=== PATIENT | female | born 1990 | race Caucasian/White ===

== ENCOUNTER 2020-06-20 10:21 | Outpatient (CLI) | payer OTHER ==
--- NOTE | 2020-06-21 12:10 | Ultrasound Report ---
LIMITED ULTRASOUND OF RIGHT BREAST: 06/20/2020 CLINICAL: Rt breast skin lesion. No prior exams were available for comparison. Color flow and real-time ultrasound of the right breast 8-10 o'clock region were performed. Araya sca le images of the real-time examination were reviewed. No significant abnormalities were seen sonographically in the right breast in the region of skin mckenzie ges. No mass or fluid collection. IMPRESSION: NEGATIVE There is no sonographic evidence of malignancy. Return to annual mammogram screening schedule is recommended, usually to commence at age 40. Exam findings were conveyed to the patient. Patient is advised to monitor for significant change. Cli nical follow-up is recommended. This exam was interpreted at Station ID: [id number]. Electronically Signed By: Jasper Johnson M.D. slc/:06/20/2020 11:01:25 Ultrasound BI-RADS: 1 Negative BI-RADS CATEGORY: (1) - 1 RECOMMENDATION: (ANNUAL) - Recommend routine annual screening mammography. [id number] return to screening LATERALITY: (B)
== END 2020-06-20 10:22 | disposition home or self-care (01) ==
LOC: DI 10:21
PROVIDERS: ATTEND Physician Assistant Medical
DX: N64.59 Other signs and symptoms in breast (principal)

== ENCOUNTER 2021-04-13 09:33 | Outpatient (CLI) | payer OTHER ==
--- NOTE | 2021-04-13 16:47 | MRI Report ---
PROCEDURE: Lumbar Spine W/O INDICATIONS: PARESTHESIA OF SKIN TECHNIQUE: Noncontrast sagittal T1 spin echo and T2 fast echo, sagittal STIR, axial T1 and T2 fast spin echo thr ough the lumbar spine. In cases with scoliosis, additional coronal T2 fast spin echo may be performe d. COMPARISON: None. FINDINGS: Image quality: Excellent. Alignment and Curvature: There is normal bony alignment. Bone Marrow: Marrow is of normal overall signal. No acute vertebral body compression fractures. Spinal Cord: Conus medullaris terminates at the L1 level. Visualized cord demonstrates normal signa l and size. Paraspinous Soft Tissues: No paravertebral masses. Liver is enlarged. Discs: Moderate to severe desiccation is present L4-5, L5-S1. L1-L2: No disc bulge, spinal stenosis or foraminal narrowing. L2-L3: No disc bulge, spinal stenosis or foraminal narrowing. L3-L4: Minimal disc bulge without spinal stenosis. Minimal left foraminal narrowing. Mild epidural lipomatosis. Mild facet and ligamentum flavum hypertrophy. L4-L5: Left hemilaminectomy changes. No disc bulge or spinal stenosis. No foraminal narrowing. L5-S1: No disc bulge or spinal stenosis. [id number] right and mild left foraminal narrowing w ith uncovertebral hypertrophy. 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 Reviewed by: Trish James MD on 04/13/2021 4:45 PM PST Approved by: Trish James MD on 04/13/2021 4:45 PM PST Station ID: [id number]
== END 2021-04-13 09:34 | disposition home or self-care (01) ==
LOC: DI 09:33
PROVIDERS: ATTEND Physician Assistant
DX: R20.2 Paresthesia of skin (principal); M47.816 Spondylosis without myelopathy or radiculopathy, lumbar region; M47.817 Spondylosis without myelopathy or radiculopathy, lumbosacral region; M51.36 Other intervertebral disc degeneration, lumbar region; M48.061 Spinal stenosis, lumbar region without neurogenic claudication; M51.37 Other intervertebral disc degeneration, lumbosacral region; M48.07 Spinal stenosis, lumbosacral region

== ENCOUNTER 2021-08-18 17:10 | Outpatient (CLI) | payer OTHER ==
[2021-08-18 21:06] LABS: CALCIUM 9.6 mg/dL (8.5-10.3); CREATININE 0.8 mg/dL (0.4-1.0); POTASSIUM 3.7 mmol/L (3.5-5.0)
[2021-08-18 21:11] LABS: CREATININE,URINE 56.8 mg/dL; PROTEIN/CREATININE RATIO,URINE 0.2 (<=0.2)
== END 2021-08-18 17:11 | disposition home or self-care (01) ==
LOC: LAB.N 17:10
PROVIDERS: ATTEND Internal Medicine Nephrology
DX: N05.9 Unspecified nephritic syndrome with unspecified morphologic changes (principal); R80.9 Proteinuria, unspecified
CPT/HCPCS: 36415; 80048; 82570; 84156

== ENCOUNTER 2022-02-05 15:44 | Emergency (ER) | payer OTHER ==
--- OUTSIDE RECORDS SUMMARY | 2022-02-05 16:00 | EXTERNAL MEDICAL SUMMARY RPT | Continuity of Care Document ---
:1990 Author Organization [place] Address [address] [place] [address] Phone Care Team Providers Name Role Phone Maria L Douglas Unavailable Unavailable Allergies and Intolerances date description facility type (no date) amoxicillin [facility] (unknown) (no date) banana [facility] (unknown) (no date) corn [facility] (unknown) (no date) egg [facility] (unknown) (no date) nut - unspecified [facility] (unknown) (no date) wheat [facility] (unknown) Encounters No information. Functional Status No information. Immunizations No information. Medications date description facility 2021-12-30 00:00 Oseltamivir [facility] Problems date description facility 2021-12-30 00:00 Influenza due to influenza virus, type A, human [facility] Procedures No information. Results/Labs test date author facility value unit interpret ation Result panel 1 (unknown) (no date[facility] Result panel 2 (unknown) (no date) (unknown[facility]) Result panel 3 (unknown) (no date) (unknown[facility]) Result panel 4 (unknown) (no date) (unknown[facility]) Result panel 5 (unknown) (no date) (unknown[facility]) Result panel 6 (unknown) (no date) (unknown[facility]) Result panel 7 (unknown) (no date) (unknown[facility]) Result panel 8 (unknown) (no date) (unknown[facility]) Result panel 9 (unknown) (no date) (unknown[facility]) Result panel 10 (unknown) (no date) (unknown[facility]) Result panel 11 (unknown) (no date) (unknown[facility]) Result panel 12 (unknown) (no date) (unknown[facility]) Result panel 13 (unknown) (no date) (unknown[facility]) Result panel 14 (unknown) (no date) (unknown[facility]) Result panel 15 (unknown) (no date) (unknown[facility]) Result panel 16 (unknown) (no date) (unknown[facility]) Result panel 17 (unknown) (no date) (unknown[facility]) Result panel 18 (unknown) (no date) (unknown[facility]) Result panel 19 (unknown) (no date) (unknown[facility]) Result panel 20 (unknown) (no date) (unknown[facility]) Result panel 21 (unknown) (no date) (unknown[facility]) Result panel 22 (unknown) (no date) (unknown[facility]) Result panel 23 (unknown) (no date) (unknown[facility]) Result panel 24 (unknown) (no date) (unknown[facility]) Result panel 25 (unknown) (no date) (unknown[facility]) Result panel 26 (unknown) (no date) (unknown[facility]) Result panel 27 (unknown) (no date) (unknown[facility]) Result panel 28 (unknown) (no date) (unknown[facility]) Result panel 29 (unknown) (no date) (unknown[facility]) Result panel 30 (unknown) (no date) (unknown[facility]) Result panel 31 (unknown) (no date) (unknown[facility]) Result panel 32 (unknown) (no date) (unknown[facility]) Result panel 33 (unknown) (no date) (unknown) [facility]) Result panel 34 (unknown) (no date) (unknown) [facility]) Result panel 35 (unknown) (no date) (unknown[facility]) Result panel 36 (unknown) (no date) (unknown[facility]) Result panel 37 (unknown) (no date) (unknown) [facility]) Result panel 38 (unknown) (no date) (unknown) [facility]) Result panel 39 (unknown) (no date) (unknown[facility]) Result panel 40 (unknown) (no date) (unknown[facility]) Result panel 41 (unknown) (no date) (unknown[facility]) Result panel 42 (unknown) (no date) (unknown[facility]) Result panel 43 (unknown) (no date) (unknown[facility]) Result panel 44 (unknown) (no date) (unknown[facility]) Result panel 45 (unknown) (no date) (unknown[facility]) Result panel 46 (unknown) (no date) (unknown[facility]) Result panel 47 (unknown) (no date) (unknown[facility]) Result panel 48 (unknown) (no date) (unknown[facility]) Result panel 49 (unknown) (no date) (unknown) [facility]) Result panel 50 (unknown) (no date) (unknown) [facility]) Result panel 51 (unknown) (no date) (unknown) [facility] Result panel 52 (unknown) (no date) (unknown) (unknown) Flu A (units (unkn own) POSITIVE unknown) (unknown) (no date) (unknown) (unknown) Flu B (units (unkn own) NEGATIVE unknown) (unknown) (no date) (unknown) (unknown) Negative (units (unkn own) unknown) (unknown) (no date) (unknown) (unknown) Negative (units (unkn own) unknown) Result panel 53 (unknown) (no (unknown) (unknown) (no value) (units (unk nown) date) unknown) (unknown) (no (unknown) (unknown) #6.7 grams (units (unk nown) date) unknown) (unknown) (no (unknown) (unknown) #75 mL (units (unkno wn) date) unknown) (unknown) (no (unknown) (unknown) (0.083 %) (units (unkn own) date) solution for unknown) nebulization shortness of breath or wheezing (unknown) (no (unknown) (unknown) (DME) nebulizer (units (unknown) date) and compressor unknown) Device (unknown) (no (unknown) (unknown) [id number] (units (unkno wn) date) unknown) (unknown) (no (unknown) (unknown) 12/30/21 18:36 (units (unknown) date) unknown) (unknown) (no (unknown) (unknown) 12/30/21 (units (unkno wn) date) Range/Units unknown) (unknown) (no (unknown) (unknown) 12/30/21 (units (unkno wn) date) unknown) (unknown) (no (unknown) (unknown) 12 point review (units (unknown) date) of systems is unknown) negative except for those stated above and HPI (unknown) (no (unknown) (unknown) 18:28 12/30/21 (units (unknown) date) unknown) (unknown) (no (unknown) (unknown) 18:36 (units (unkno wn) date) unknown) (unknown) (no (unknown) (unknown) 19:34 (units (unkno wn) date) unknown) (unknown) (no (unknown) (unknown) 1RF (units (unkno wn) date) unknown) (unknown) (no (unknown) (unknown) 2 puff (units (unkno wn) date) inhalation Q6H unknown) PRN (Reason: shortness of breath or wheezing) Qty: 6.7 (unknown) (no (unknown) (unknown) 2.5 mg (units (unkno wn) date) inhalation Q4-6H unknown) PRN (Reason: shortness of breath or wheezing) Qty: 75 (unknown) (no (unknown) (unknown) 3RF (units (unkno wn) date) unknown) (unknown) (no (unknown) (unknown) 40 mg PO DAILY (units (unknown) date) Qty: 10 0RF unknown) (unknown) (no (unknown) (unknown) Age/Sex: 31 / F (units (unknown) date) unknown) (unknown) (no (unknown) (unknown) Allergies (units (unkn own) date) unknown) (unknown) (no (unknown) (unknown) Allergy/AdvReac (units (unknown) date) Type Severity unknown) Reaction Status Date / Time (unknown) (no (unknown) (unknown) As directed (units (un known) date) unknown) (unknown) (no (unknown) (unknown) Asthma (units (unkno wn) date) unknown) (unknown) (no (unknown) (unknown) Blood Pressure (units (unknown) date) 143/76 H unknown) 12/30/21 18:28 (unknown) (no (unknown) (unknown) Blood Pressure (units (unknown) date) 143/76 H 139/70 unknown) (unknown) (no (unknown) (unknown) CARDIOVASCULAR: (units (unknown) date) Denies chest unknown) pain, palpitations, orthopnea, edema (unknown) (no (unknown) (unknown) Chief (units (unkno wn) date) Complaint: Upper unknown) Respiratory Symptoms (unknown) (no (unknown) (unknown) Course (units (unkno wn) date) unknown) (unknown) (no (unknown) (unknown) Covid-19 + FLU (units (unknown) date) A/B + RSV - PCR unknown) Stat (unknown) (no (unknown) (unknown) : 1990 (units (unknown) date) Acct:[id number] unknown) (unknown) (no (unknown) (unknown) Date of (units (unkno wn) date) Service: unknown) 12/30/21 (unknown) (no (unknown) (unknown) Departure (units (unkn own) date) unknown) (unknown) (no (unknown) (unknown) Discharge Plan (units (unknown) date) unknown) (unknown) (no (unknown) (unknown) ED Orders (units (unkn own) date) unknown) (unknown) (no (unknown) (unknown) ER Physician: (units ( unknown) date) Ivana Soto unknown) D.O. (unknown) (no (unknown) (unknown) Emergency (units (unkn own) date) Report unknown) (unknown) (no (unknown) (unknown) Exam (units (unkno wn) date) unknown) (unknown) (no (unknown) (unknown) GASTROINTESTINA (units (unknown) date) L: Denies unknown) nausea, vomiting, abdominal pain, diarrhea, (unknown) (no (unknown) (unknown) GENERAL: (units (unkno wn) date) unknown) (unknown) (no (unknown) (unknown) : Denies (units (unkn own) date) dysuria, unknown) frequency, incontinence, hematuria, urinary retention, flank (unknown) (no (unknown) (unknown) General (units (unkno wn) date) unknown) (unknown) (no (unknown) (unknown) HEENT: Denies (units ( unknown) date) sinus pain, ear unknown) pain, sore throat, difficulty swallowing, neck (unknown) (no (unknown) (unknown) HPI - URI/Sore (units (unknown) date) Throat unknown) (unknown) (no (unknown) (unknown) HPI Narrative: (units (unknown) date) unknown) (unknown) (no (unknown) (unknown) History of (units (unk nown) date) Present Illness unknown) (unknown) (no (unknown) (unknown) Influenza A (units (un known) date) (RT-PCR) Flu a unknown) positive H (NEGATIVE) (unknown) (no (unknown) (unknown) Influenza B (units (un known) date) (RT-PCR) Flu b unknown) negative (NEGATIVE) (unknown) (no (unknown) (unknown) Initial Vital (units ( unknown) date) Signs unknown) (unknown) (no (unknown) (unknown) Initial Vital (units ( unknown) date) Signs: unknown) (unknown) (no (unknown) (unknown) [facility] (units (unknown) date) [address] [place] [address] Street unknown) [place] [address] (unknown) (no (unknown) (unknown) Lab Data (units (unkno wn) date) unknown) (unknown) (no (unknown) (unknown) Lab Results (units (un known) date) unknown) (unknown) (no (unknown) (unknown) Labs: (units (unkno wn) date) unknown) (unknown) (no (unknown) (unknown) MDM - URI/Sore (units (unknown) date) Throat unknown) (unknown) (no (unknown) (unknown) MUSCULOSKELETAL (units (unknown) date) : Denies unknown) weakness, joint pain, or bony pain (unknown) (no (unknown) (unknown) Medical History (units (unknown) date) (Updated unknown) 08/06/21 @ 00:01 by ) (unknown) (no (unknown) (unknown) Medication (units (unk nown) date) Instructions unknown) Recorded (unknown) (no (unknown) (unknown) Mode of (units (unkno wn) date) arrival: Family unknown) Vehicle (unknown) (no (unknown) (unknown) NEUROLOGIC: (units (un known) date) Denies weakness, unknown) dizziness, headache, numbness, change in speech, (unknown) (no (unknown) (unknown) Narrative: (units (unk nown) date) unknown) (unknown) (no (unknown) (unknown) No Action (units (unkn own) date) unknown) (unknown) (no (unknown) (unknown) Ordered: (units (unkno wn) date) unknown) (unknown) (no (unknown) (unknown) Orders (units (unkno wn) date) unknown) (unknown) (no (unknown) (unknown) Oxygen Delivery (units (unknown) date) Method 12/30/21 unknown) 18:28 (unknown) (no (unknown) (unknown) Oxygen Delivery (units (unknown) date) Method Room Air unknown) Room Air (unknown) (no (unknown) (unknown) PSYCHIATRIC: No (units (unknown) date) concerning unknown) psychosocial issues. (unknown) (no (unknown) (unknown) Patient History (units (unknown) date) unknown) (unknown) (no (unknown) (unknown) Patient is a (units (u nknown) date) healthy unknown) 31-year-old female who presents with fever body aches and (unknown) (no (unknown) (unknown) Patient: (units (unkno wn) date) Karen Arenas M unknown) MR#: [id number] (unknown) (no (unknown) (unknown) Prescriptions: (units (unknown) date) unknown) (unknown) (no (unknown) (unknown) Previous Rx's (units ( unknown) date) unknown) (unknown) (no (unknown) (unknown) Pulse Oximetry (units (unknown) date) 99 12/30/21 unknown) 18:28 (unknown) (no (unknown) (unknown) Pulse Oximetry (units (unknown) date) 99 98 unknown) (unknown) (no (unknown) (unknown) Pulse Rate 112 (units (unknown) date) H 12/30/21 18:28 unknown) (unknown) (no (unknown) (unknown) Pulse Rate 112 (units (unknown) date) H 112 H unknown) (unknown) (no (unknown) (unknown) RESPIRATORY: (units (u nknown) date) Denies dyspnea, unknown) cough, wheezing, hemoptysis, sputum. (unknown) (no (unknown) (unknown) RSV (PCR) (units (unkn own) date) Negative unknown) (Negative) (unknown) (no (unknown) (unknown) Related Data (units (u nknown) date) unknown) (unknown) (no (unknown) (unknown) Respiratory (units (un known) date) Rate 19 12/30/21 unknown) 18:28 (unknown) (no (unknown) (unknown) Respiratory (units (un known) date) Rate 19 18 unknown) (unknown) (no (unknown) (unknown) Review of (units (unkn own) date) Systems unknown) (unknown) (no (unknown) (unknown) Rx (units (unkno wn) date) Instructions: unknown) (unknown) (no (unknown) (unknown) SARS-CoV-2 (units (unk nown) date) (PCR) Negative unknown) (Negative) (unknown) (no (unknown) (unknown) SKIN: No rash, (units (unknown) date) no erythema, no unknown) pruritus (unknown) (no (unknown) (unknown) See Rx (units (unkno wn) date) Instructions unknown) .Route Qty: 1 0RF (unknown) (no (unknown) (unknown) Signed By: (units (unk nown) date) unknown) (unknown) (no (unknown) (unknown) Smoking Status: (units (unknown) date) Never smoker unknown) (unknown) (no (unknown) (unknown) Social History (units (unknown) date) (Reviewed unknown) 07/22/21 @ 19:18 by Maria L Douglas MD) (unknown) (no (unknown) (unknown) Source: patient (units (unknown) date) unknown) (unknown) (no (unknown) (unknown) Stage 2 chronic (units (unknown) date) kidney disease unknown) (unknown) (no (unknown) (unknown) Stated (units (unkno wn) date) Complaint: High unknown) heartrate, dizzy, body tingling (unknown) (no (unknown) (unknown) Substance Use (units ( unknown) date) Type: marijuana unknown) (unknown) (no (unknown) (unknown) Temperature (units (un known) date) 100.6 F H unknown) 12/30/21 18:28 (unknown) (no (unknown) (unknown) Temperature (units (un known) date) 100.6 F H 99.1 F unknown) (unknown) (no (unknown) (unknown) Time Seen by (units (u nknown) date) Provider: unknown) 12/30/21 20:52 (unknown) (no (unknown) (unknown) Vital Signs - 8 (units (unknown) date) hr unknown) (unknown) (no (unknown) (unknown) Vital Signs (units (un known) date) unknown) (unknown) (no (unknown) (unknown) Vital signs: (units (u nknown) date) unknown) (unknown) (no (unknown) (unknown) aerosol inhaler (units (unknown) date) shortness of unknown) breath or wheezing (unknown) (no (unknown) (unknown) albuterol (units (unkn own) date) sulfate 2.5 mg unknown) /3 mL (0.083 %) solution for nebulization (unknown) (no (unknown) (unknown) albuterol (units (unkn own) date) sulfate 2.5 mg/3 unknown) mL 2.5 mg (3 mL) inhalation Q4-6H PRN 07/22/21 (unknown) (no (unknown) (unknown) albuterol (units (unkn own) date) sulfate 90 unknown) mcg/actuation 2 puff inhalation Q6H PRN 07/22/21 (unknown) (no (unknown) (unknown) albuterol (units (unkn own) date) sulfate 90 unknown) mcg/actuation HFA aerosol inhaler (unknown) (no (unknown) (unknown) alcohol intake (units (unknown) date) frequency: a few unknown) times a month (unknown) (no (unknown) (unknown) amoxicillin (units (un known) date) Allergy Severe unknown) Hives Verified 12/30/21 18:35 (unknown) (no (unknown) (unknown) banana Allergy (units (unknown) date) Severe unknown) Anaphylaxis Verified 12/30/21 18:35 (unknown) (no (unknown) (unknown) confusion (units (unkn own) date) unknown) (unknown) (no (unknown) (unknown) constipation, (units ( unknown) date) melena. unknown) (unknown) (no (unknown) (unknown) corn Allergy (units (u nknown) date) Severe unknown) Anaphylaxis Verified 12/30/21 18:35 (unknown) (no (unknown) (unknown) egg Allergy (units (un known) date) Severe unknown) Anaphylaxis Verified 12/30/21 18:35 (unknown) (no (unknown) (unknown) has generalized (units (unknown) date) body aches and unknown) not feeling. No significant neck pain or (unknown) (no (unknown) (unknown) headache. (units (unkn own) date) unknown) (unknown) (no (unknown) (unknown) here in the ED (units (unknown) date) she has not unknown) taken anything for fever or pain. Denies cough she (unknown) (no (unknown) (unknown) nebulizer and (units ( unknown) date) compressor #1 ea unknown) 07/22/21 (unknown) (no (unknown) (unknown) nut - (units (unkno wn) date) unspecified unknown) Allergy Severe Anaphylaxis Verified 12/30/21 18:35 (unknown) (no (unknown) (unknown) pain (units (unkno wn) date) unknown) (unknown) (no (unknown) (unknown) pain. (units (unkno wn) date) unknown) (unknown) (no (unknown) (unknown) prednisone 20 (units ( unknown) date) mg tablet 40 mg unknown) PO DAILY #10 tabs 07/22/21 (unknown) (no (unknown) (unknown) prednisone 20 (units ( unknown) date) mg tablet unknown) (unknown) (no (unknown) (unknown) sharp body (units (unk nown) date) pains ongoing unknown) for 1 day. She is currently tachycardic and febrile (unknown) (no (unknown) (unknown) wheat Allergy (units ( unknown) date) Severe unknown) Anaphylaxis Verified 12/30/21 18:35 Result panel 54 (unknown) (no (unknown) (unknown) (no value) (units (unk nown) date) unknown) (unknown) (no (unknown) (unknown) #6.7 grams (units (unk nown) date) unknown) (unknown) (no (unknown) (unknown) #75 mL (units (unkno wn) date) unknown) (unknown) (no (unknown) (unknown) (0.083 %) (units (unkn own) date) solution for unknown) nebulization shortness of breath or wheezing (unknown) (no (unknown) (unknown) (DME) nebulizer (units (unknown) date) and compressor unknown) Device (unknown) (no (unknown) (unknown) *Continue to take (units (unknown) date) medications as unknown) directed (unknown) (no (unknown) (unknown) *Follow up with (units (unknown) date) your primary care unknown) provider in 2-3 days or call [phone] (unknown) (no (unknown) (unknown) *Return to ER if (units (unknown) date) you should have unknown) increased difficulty breathing not tolerating (unknown) (no (unknown) (unknown) *What to do: Stay (units (unknown) date) hydrated fever unknown) control Tylenol or Motrin (unknown) (no (unknown) (unknown) *You have been (units (unknown) date) diagnosed with unknown) influenza a (unknown) (no (unknown) (unknown) [id number] (units (unkno wn) date) unknown) (unknown) (no (unknown) (unknown) 12/30/21 18:36 (units (unknown) date) unknown) (unknown) (no (unknown) (unknown) 12/30/21 (units (unkno wn) date) Range/Units unknown) (unknown) (no (unknown) (unknown) 12/30/21 (units (unkno wn) date) unknown) (unknown) (no (unknown) (unknown) 12 point review (units (unknown) date) of systems is unknown) negative except for those stated above and HPI (unknown) (no (unknown) (unknown) 18:28 12/30/21 (units (unknown) date) unknown) (unknown) (no (unknown) (unknown) 18:36 (units (unkno wn) date) unknown) (unknown) (no (unknown) (unknown) 19:34 (units (unkno wn) date) unknown) (unknown) (no (unknown) (unknown) 1RF (units (unkno wn) date) unknown) (unknown) (no (unknown) (unknown) 2 puff inhalation (units (unknown) date) Q6H PRN (Reason: unknown) shortness of breath or wheezing) Qty: 6.7 (unknown) (no (unknown) (unknown) 2.5 mg inhalation (units (unknown) date) Q4-6H PRN (Reason: unknown) shortness of breath or wheezing) Qty: 75 (unknown) (no (unknown) (unknown) 3RF (units (unkno wn) date) unknown) (unknown) (no (unknown) (unknown) 40 mg PO DAILY (units (unknown) date) Qty: 10 0RF unknown) (unknown) (no (unknown) (unknown) 75 mg PO BID 5 (units (unknown) date) Days Qty: 10 0RF unknown) (unknown) (no (unknown) (unknown) ABDOMEN: Soft, (units (unknown) date) nontender. unknown) Normoactive bowel sounds all 4 quadrants. No (unknown) (no (unknown) (unknown) Activity (units (unkno wn) date) Restrictions/Addit unknown) ional Instructions: (unknown) (no (unknown) (unknown) Age/Sex: 31 / F (units (unknown) date) unknown) (unknown) (no (unknown) (unknown) Allergies (units (unkn own) date) unknown) (unknown) (no (unknown) (unknown) Allergy/AdvReac (units (unknown) date) Type Severity unknown) Reaction Status Date / Time (unknown) (no (unknown) (unknown) As directed (units (un known) date) unknown) (unknown) (no (unknown) (unknown) Asthma (units (unkno wn) date) unknown) (unknown) (no (unknown) (unknown) Blood Pressure (units (unknown) date) 143/76 H 12/30/21 unknown) 18:28 (unknown) (no (unknown) (unknown) Blood Pressure (units (unknown) date) 143/76 H 139/70 unknown) (unknown) (no (unknown) (unknown) CARDIOVASCULAR: (units (unknown) date) Denies chest pain, unknown) palpitations, orthopnea, edema (unknown) (no (unknown) (unknown) CARDIOVASCULAR: (units (unknown) date) Regular rate and unknown) rhythm without murmurs, rubs or gallops. (unknown) (no (unknown) (unknown) Chief Complaint: (units (unknown) date) Upper Respiratory unknown) Symptoms (unknown) (no (unknown) (unknown) Clinical (units (unkno wn) date) Impression: unknown) (unknown) (no (unknown) (unknown) Course (units (unkno wn) date) unknown) (unknown) (no (unknown) (unknown) Covid-19 + FLU (units (unknown) date) A/B + RSV - PCR unknown) Stat (unknown) (no (unknown) (unknown) : 1990 (units (unknown) date) Acct:[id number] unknown) (unknown) (no (unknown) (unknown) Date of Service: (units (unknown) date) 12/30/21 unknown) (unknown) (no (unknown) (unknown) Departure (units (unkn own) date) unknown) (unknown) (no (unknown) (unknown) Discharge Plan (units (unknown) date) unknown) (unknown) (no (unknown) (unknown) ED Orders (units (unkn own) date) unknown) (unknown) (no (unknown) (unknown) ER Physician: (units ( unknown) date) vIana Soto unknown) D.O. (unknown) (no (unknown) (unknown) EXTREMITIES: (units (u nknown) date) Normal range of unknown) motion, no clubbing or edema. Neurovascularly (unknown) (no (unknown) (unknown) Emergency Report (units (unknown) date) unknown) (unknown) (no (unknown) (unknown) Exam (units (unkno wn) date) unknown) (unknown) (no (unknown) (unknown) GASTROINTESTINAL: (units (unknown) date) Denies nausea, unknown) vomiting, abdominal pain, diarrhea, (unknown) (no (unknown) (unknown) GENERAL: Alert (units (unknown) date) 31-year-old female unknown) appears to not feel well but no acute (unknown) (no (unknown) (unknown) GENERAL: See HPI (units (unknown) date) unknown) (unknown) (no (unknown) (unknown) : Denies (units (unkn own) date) dysuria, unknown) frequency, incontinence, hematuria, urinary retention, flank (unknown) (no (unknown) (unknown) General (units (unkno wn) date) unknown) (unknown) (no (unknown) (unknown) HEENT: Denies (units ( unknown) date) sinus pain, ear unknown) pain, sore throat, difficulty swallowing, neck (unknown) (no (unknown) (unknown) HEENT: Head (units (un known) date) atraumatic,EOMI, unknown) pupils reactive, face symmetric, moist mucous (unknown) (no (unknown) (unknown) HPI - URI/Sore (units (unknown) date) Throat unknown) (unknown) (no (unknown) (unknown) HPI Narrative: (units (unknown) date) unknown) (unknown) (no (unknown) (unknown) History of (units (unk nown) date) Present Illness unknown) (unknown) (no (unknown) (unknown) Influenza A (units (un known) date) (RT-PCR) Flu a unknown) positive H (NEGATIVE) (unknown) (no (unknown) (unknown) Influenza A (units (un known) date) unknown) (unknown) (no (unknown) (unknown) Influenza B (units (un known) date) (RT-PCR) Flu b unknown) negative (NEGATIVE) (unknown) (no (unknown) (unknown) Initial Vital (units ( unknown) date) Signs unknown) (unknown) (no (unknown) (unknown) Initial Vital (units ( unknown) date) Signs: unknown) (unknown) (no (unknown) (unknown) Instructions: DI (units (unknown) date) for Influenza -- unknown) Adult (unknown) (no (unknown) (unknown) [facility] (units (unknown) date) [address]) [place] [address] (unknown) (no (unknown) (unknown) Lab Data (units (unkno wn) date) unknown) (unknown) (no (unknown) (unknown) Lab Results (units (un known) date) unknown) (unknown) (no (unknown) (unknown) Labs: (units (unkno wn) date) unknown) (unknown) (no (unknown) (unknown) MDM - URI/Sore (units (unknown) date) Throat unknown) (unknown) (no (unknown) (unknown) MUSCULOSKELETAL: (units (unknown) date) Denies weakness, unknown) joint pain, or bony pain (unknown) (no (unknown) (unknown) Medical History (units (unknown) date) (Reviewed 12/30/21 unknown) @ 21:25 by Ivana Soto DO) (unknown) (no (unknown) (unknown) Medication (units (unk nown) date) Instructions unknown) Recorded (unknown) (no (unknown) (unknown) Mode of arrival: (units (unknown) date) Family Vehicle unknown) (unknown) (no (unknown) (unknown) NEUROLOGIC: (units (un known) date) Denies weakness, unknown) dizziness, headache, numbness, change in speech, (unknown) (no (unknown) (unknown) NEUROLOGICAL: (units ( unknown) date) Alert and oriented unknown) x4. (unknown) (no (unknown) (unknown) Narrative: (units (unk nown) date) unknown) (unknown) (no (unknown) (unknown) New (units (unkno wn) date) unknown) (unknown) (no (unknown) (unknown) No Action (units (unkn own) date) unknown) (unknown) (no (unknown) (unknown) Ordered: (units (unkno wn) date) unknown) (unknown) (no (unknown) (unknown) Orders (units (unkno wn) date) unknown) (unknown) (no (unknown) (unknown) Oxygen Delivery (units (unknown) date) Method 12/30/21 unknown) 18:28 (unknown) (no (unknown) (unknown) Oxygen Delivery (units (unknown) date) Method Room Air unknown) Room Air (unknown) (no (unknown) (unknown) PSYCHIATRIC: No (units (unknown) date) concerning unknown) psychosocial issues. (unknown) (no (unknown) (unknown) Patient (units (unkno wn) date) Disposition: Home unknown) (unknown) (no (unknown) (unknown) Patient History (units (unknown) date) unknown) (unknown) (no (unknown) (unknown) Patient is a (units (u nknown) date) healthy unknown) 31-year-old female who presents with fever body aches and (unknown) (no (unknown) (unknown) Patient: (units (unkno wn) date) Karen Arenas M unknown) MR#: [id number] (unknown) (no (unknown) (unknown) Prescriptions: (units (unknown) date) unknown) (unknown) (no (unknown) (unknown) Previous Rx's (units ( unknown) date) unknown) (unknown) (no (unknown) (unknown) Pulse Oximetry 99 (units (unknown) date) 12/30/21 18:28 unknown) (unknown) (no (unknown) (unknown) Pulse Oximetry 99 (units (unknown) date) 98 unknown) (unknown) (no (unknown) (unknown) Pulse Rate 112 H (units (unknown) date) 12/30/21 18:28 unknown) (unknown) (no (unknown) (unknown) Pulse Rate 112 H (units (unknown) date) 112 H unknown) (unknown) (no (unknown) (unknown) RESPIRATORY: (units (u nknown) date) Breath sounds unknown) equal bilaterally, no wheezes rales or rhonchi. (unknown) (no (unknown) (unknown) RESPIRATORY: (units (u nknown) date) Denies dyspnea, unknown) cough, wheezing, hemoptysis, sputum. (unknown) (no (unknown) (unknown) RSV (PCR) (units (unkn own) date) Negative unknown) (Negative) (unknown) (no (unknown) (unknown) Related Data (units (u nknown) date) unknown) (unknown) (no (unknown) (unknown) Respiratory Rate (units (unknown) date) 19 12/30/21 18:28 unknown) (unknown) (no (unknown) (unknown) Respiratory Rate (units (unknown) date) 19 18 unknown) (unknown) (no (unknown) (unknown) Review of Systems (units (unknown) date) unknown) (unknown) (no (unknown) (unknown) Rx Instructions: (units (unknown) date) unknown) (unknown) (no (unknown) (unknown) SARS-CoV-2 (PCR) (units (unknown) date) Negative unknown) (Negative) (unknown) (no (unknown) (unknown) SKIN: No rash, no (units (unknown) date) erythema, no unknown) pruritus (unknown) (no (unknown) (unknown) SKIN: Warm, dry, (units (unknown) date) no laceration, no unknown) petechiae, no rashes or lesions. (unknown) (no (unknown) (unknown) See Rx (units (unkno wn) date) Instructions unknown) .Route Qty: 1 0RF (unknown) (no (unknown) (unknown) Signed By: (units (unk nown) date) unknown) (unknown) (no (unknown) (unknown) Smoking Status: (units (unknown) date) Never smoker unknown) (unknown) (no (unknown) (unknown) Social History (units (unknown) date) (Reviewed 12/30/21 unknown) @ 21:25 by Ivana Soto DO) (unknown) (no (unknown) (unknown) Source: patient (units (unknown) date) unknown) (unknown) (no (unknown) (unknown) Stage 2 chronic (units (unknown) date) kidney disease unknown) (unknown) (no (unknown) (unknown) Stated Complaint: (units (unknown) date) High heartrate, unknown) dizzy, body tingling (unknown) (no (unknown) (unknown) Substance Use (units ( unknown) date) Type: marijuana unknown) (unknown) (no (unknown) (unknown) Tamiflu take as (units (unknown) date) directed 75 mg unknown) twice a day for 5 days (unknown) (no (unknown) (unknown) Temperature 100.6 (units (unknown) date) F H 12/30/21 18:28 unknown) (unknown) (no (unknown) (unknown) Temperature 100.6 (units (unknown) date) F H 99.1 F unknown) (unknown) (no (unknown) (unknown) Time Seen by (units (u nknown) date) Provider: 12/30/21 unknown) 20:52 (unknown) (no (unknown) (unknown) Vital Signs - 8 (units (unknown) date) hr unknown) (unknown) (no (unknown) (unknown) Vital Signs (units (un known) date) unknown) (unknown) (no (unknown) (unknown) Vital signs: (units (u nknown) date) unknown) (unknown) (no (unknown) (unknown) aerosol inhaler (units (unknown) date) shortness of unknown) breath or wheezing (unknown) (no (unknown) (unknown) albuterol sulfate (units (unknown) date) 2.5 mg /3 mL unknown) (0.083 %) solution for nebulization (unknown) (no (unknown) (unknown) albuterol sulfate (units (unknown) date) 2.5 mg/3 mL 2.5 mg unknown) (3 mL) inhalation Q4-6H PRN 07/22/21 (unknown) (no (unknown) (unknown) albuterol sulfate (units (unknown) date) 90 mcg/actuation 2 unknown) puff inhalation Q6H PRN 07/22/21 (unknown) (no (unknown) (unknown) albuterol sulfate (units (unknown) date) 90 mcg/actuation unknown) HFA aerosol inhaler (unknown) (no (unknown) (unknown) alcohol intake (units (unknown) date) frequency: a few unknown) times a month (unknown) (no (unknown) (unknown) amoxicillin (units (un known) date) Allergy Severe unknown) Hives Verified 12/30/21 18:35 (unknown) (no (unknown) (unknown) banana Allergy (units (unknown) date) Severe Anaphylaxis unknown) Verified 12/30/21 18:35 (unknown) (no (unknown) (unknown) confusion (units (unkn own) date) unknown) (unknown) (no (unknown) (unknown) constipation, (units ( unknown) date) melena. unknown) (unknown) (no (unknown) (unknown) corn Allergy (units (u nknown) date) Severe Anaphylaxis unknown) Verified 12/30/21 18:35 (unknown) (no (unknown) (unknown) distress (units (unkno wn) date) unknown) (unknown) (no (unknown) (unknown) egg Allergy (units (un known) date) Severe Anaphylaxis unknown) Verified 12/30/21 18:35 (unknown) (no (unknown) (unknown) fluids or any (units ( unknown) date) new, worsening or unknown) concerning symptoms (unknown) (no (unknown) (unknown) guarding or (units (un known) date) rebound. unknown) (unknown) (no (unknown) (unknown) has generalized (units (unknown) date) body aches and not unknown) feeling. No significant neck pain or (unknown) (no (unknown) (unknown) headache. (units (unkn own) date) unknown) (unknown) (no (unknown) (unknown) here in the ED (units (unknown) date) she has not taken unknown) anything for fever or pain. Denies cough she (unknown) (no (unknown) (unknown) intact (units (unkno wn) date) unknown) (unknown) (no (unknown) (unknown) membranes (units (unkn own) date) unknown) (unknown) (no (unknown) (unknown) nebulizer and (units ( unknown) date) compressor #1 ea unknown) 07/22/21 (unknown) (no (unknown) (unknown) nut - unspecified (units (unknown) date) Allergy Severe unknown) Anaphylaxis Verified 12/30/21 18:35 (unknown) (no (unknown) (unknown) oseltamivir 75 mg (units (unknown) date) capsule (Tamiflu) unknown) 75 mg PO BID 5 days #10 caps 12/30/21 (unknown) (no (unknown) (unknown) oseltamivir (units (un known) date) [Tamiflu] 75 mg unknown) capsule (unknown) (no (unknown) (unknown) pain (units (unkno wn) date) unknown) (unknown) (no (unknown) (unknown) pain. (units (unkno wn) date) unknown) (unknown) (no (unknown) (unknown) prednisone 20 mg (units (unknown) date) tablet 40 mg PO unknown) DAILY #10 tabs 07/22/21 (unknown) (no (unknown) (unknown) prednisone 20 mg (units (unknown) date) tablet unknown) (unknown) (no (unknown) (unknown) sharp body pains (units (unknown) date) ongoing for 1 day. unknown) She is currently tachycardic and febrile (unknown) (no (unknown) (unknown) wheat Allergy (units ( unknown) date) Severe Anaphylaxis unknown) Verified 12/30/21 18:35 Result panel 55 (unknown) (no (unknown) (unknown) (no value) (units (unk nown) date) unknown) (unknown) (no (unknown) (unknown) #6.7 grams (units (unk nown) date) unknown) (unknown) (no (unknown) (unknown) #75 mL (units (unkno wn) date) unknown) (unknown) (no (unknown) (unknown) (0.083 %) (units (unkn own) date) solution for unknown) nebulization shortness of breath or wheezing (unknown) (no (unknown) (unknown) (DME) nebulizer (units (unknown) date) and compressor unknown) Device (unknown) (no (unknown) (unknown) *Continue to take (units (unknown) date) medications as unknown) directed (unknown) (no (unknown) (unknown) *Follow up with (units (unknown) date) your primary care unknown) provider in 2-3 days or call [phone] (unknown) (no (unknown) (unknown) *Return to ER if (units (unknown) date) you should have unknown) increased difficulty breathing not tolerating (unknown) (no (unknown) (unknown) *What to do: Stay (units (unknown) date) hydrated fever unknown) control Tylenol or Motrin (unknown) (no (unknown) (unknown) *You have been (units (unknown) date) diagnosed with unknown) influenza a (unknown) (no (unknown) (unknown) [id number] (units (unkno wn) date) unknown) (unknown) (no (unknown) (unknown) 12/30/21 18:36 (units (unknown) date) unknown) (unknown) (no (unknown) (unknown) 12/30/21 (units (unkno wn) date) Range/Units unknown) (unknown) (no (unknown) (unknown) 12/30/21 (units (unkno wn) date) unknown) (unknown) (no (unknown) (unknown) 12 point review (units (unknown) date) of systems is unknown) negative except for those stated above and HPI (unknown) (no (unknown) (unknown) 18:28 12/30/21 (units (unknown) date) unknown) (unknown) (no (unknown) (unknown) 18:36 (units (unkno wn) date) unknown) (unknown) (no (unknown) (unknown) 19:34 (units (unkno wn) date) unknown) (unknown) (no (unknown) (unknown) 1RF (units (unkno wn) date) unknown) (unknown) (no (unknown) (unknown) 2 puff inhalation (units (unknown) date) Q6H PRN (Reason: unknown) shortness of breath or wheezing) Qty: 6.7 (unknown) (no (unknown) (unknown) 2.5 mg inhalation (units (unknown) date) Q4-6H PRN (Reason: unknown) shortness of breath or wheezing) Qty: 75 (unknown) (no (unknown) (unknown) 3RF (units (unkno wn) date) unknown) (unknown) (no (unknown) (unknown) 40 mg PO DAILY (units (unknown) date) Qty: 10 0RF unknown) (unknown) (no (unknown) (unknown) 75 mg PO BID 5 (units (unknown) date) Days Qty: 10 0RF unknown) (unknown) (no (unknown) (unknown) ABDOMEN: Soft, (units (unknown) date) nontender. unknown) Normoactive bowel sounds all 4 quadrants. No (unknown) (no (unknown) (unknown) Activity (units (unkno wn) date) Restrictions/Addit unknown) ional Instructions: (unknown) (no (unknown) (unknown) Age/Sex: 31 / F (units (unknown) date) unknown) (unknown) (no (unknown) (unknown) Allergies (units (unkn own) date) unknown) (unknown) (no (unknown) (unknown) Allergy/AdvReac (units (unknown) date) Type Severity unknown) Reaction Status Date / Time (unknown) (no (unknown) (unknown) As directed (units (un known) date) unknown) (unknown) (no (unknown) (unknown) Asthma (units (unkno wn) date) unknown) (unknown) (no (unknown) (unknown) Blood Pressure (units (unknown) date) 143/76 H 12/30/21 unknown) 18:28 (unknown) (no (unknown) (unknown) Blood Pressure (units (unknown) date) 143/76 H 139/70 unknown) (unknown) (no (unknown) (unknown) CARDIOVASCULAR: (units (unknown) date) Denies chest pain, unknown) palpitations, orthopnea, edema (unknown) (no (unknown) (unknown) CARDIOVASCULAR: (units (unknown) date) Regular rate and unknown) rhythm without murmurs, rubs or gallops. (unknown) (no (unknown) (unknown) Chief Complaint: (units (unknown) date) Upper Respiratory unknown) Symptoms (unknown) (no (unknown) (unknown) Clinical (units (unkno wn) date) Impression: unknown) (unknown) (no (unknown) (unknown) Course (units (unkno wn) date) unknown) (unknown) (no (unknown) (unknown) Covid-19 + FLU (units (unknown) date) A/B + RSV - PCR unknown) Stat (unknown) (no (unknown) (unknown) : 1990 (units (unknown) date) Acct:[id number] unknown) (unknown) (no (unknown) (unknown) Date of Service: (units (unknown) date) 12/30/21 unknown) (unknown) (no (unknown) (unknown) Departure (units (unkn own) date) unknown) (unknown) (no (unknown) (unknown) Discharge Plan (units (unknown) date) unknown) (unknown) (no (unknown) (unknown) ED Orders (units (unkn own) date) unknown) (unknown) (no (unknown) (unknown) ER Physician: (units ( unknown) date) Ivana Soto unknown) D.O. (unknown) (no (unknown) (unknown) EXTREMITIES: (units (u nknown) date) Normal range of unknown) motion, no clubbing or edema. Neurovascularly (unknown) (no (unknown) (unknown) Emergency Report (units (unknown) date) unknown) (unknown) (no (unknown) (unknown) Exam (units (unkno wn) date) unknown) (unknown) (no (unknown) (unknown) GASTROINTESTINAL: (units (unknown) date) Denies nausea, unknown) vomiting, abdominal pain, diarrhea, (unknown) (no (unknown) (unknown) GENERAL: Alert (units (unknown) date) 31-year-old female unknown) appears to not feel well but no acute (unknown) (no (unknown) (unknown) GENERAL: See HPI (units (unknown) date) unknown) (unknown) (no (unknown) (unknown) : Denies (units (unkn own) date) dysuria, unknown) frequency, incontinence, hematuria, urinary retention, flank (unknown) (no (unknown) (unknown) General (units (unkno wn) date) unknown) (unknown) (no (unknown) (unknown) HEENT: Denies (units ( unknown) date) sinus pain, ear unknown) pain, sore throat, difficulty swallowing, neck (unknown) (no (unknown) (unknown) HEENT: Head (units (un known) date) atraumatic,EOMI, unknown) pupils reactive, face symmetric, moist mucous (unknown) (no (unknown) (unknown) HPI - URI/Sore (units (unknown) date) Throat unknown) (unknown) (no (unknown) (unknown) HPI Narrative: (units (unknown) date) unknown) (unknown) (no (unknown) (unknown) History of (units (unk nown) date) Present Illness unknown) (unknown) (no (unknown) (unknown) Influenza A (units (un known) date) (RT-PCR) Flu a unknown) positive H (NEGATIVE) (unknown) (no (unknown) (unknown) Influenza A (units (un known) date) unknown) (unknown) (no (unknown) (unknown) Influenza B (units (un known) date) (RT-PCR) Flu b unknown) negative (NEGATIVE) (unknown) (no (unknown) (unknown) Initial Vital (units ( unknown) date) Signs unknown) (unknown) (no (unknown) (unknown) Initial Vital (units ( unknown) date) Signs: unknown) (unknown) (no (unknown) (unknown) Instructions: DI (units (unknown) date) for Influenza -- unknown) Adult (unknown) (no (unknown) (unknown) [facility] (units (unknown) date) [address]) [place] [address] (unknown) (no (unknown) (unknown) Lab Data (units (unkno wn) date) unknown) (unknown) (no (unknown) (unknown) Lab Results (units (un known) date) unknown) (unknown) (no (unknown) (unknown) Labs: (units (unkno wn) date) unknown) (unknown) (no (unknown) (unknown) MDM - URI/Sore (units (unknown) date) Throat unknown) (unknown) (no (unknown) (unknown) MUSCULOSKELETAL: (units (unknown) date) Denies weakness, unknown) joint pain, or bony pain (unknown) (no (unknown) (unknown) Medical History (units (unknown) date) (Reviewed 12/30/21 unknown) @ 21:25 by Ivana Soto DO) (unknown) (no (unknown) (unknown) Medication (units (unk nown) date) Instructions unknown) Recorded (unknown) (no (unknown) (unknown) Mode of arrival: (units (unknown) date) Family Vehicle unknown) (unknown) (no (unknown) (unknown) Motrin 600 mg (units ( unknown) date) every 6 hours if unknown) needed for acya-bw-rcjacjal pain (unknown) (no (unknown) (unknown) NEUROLOGIC: (units (un known) date) Denies weakness, unknown) dizziness, headache, numbness, change in speech, (unknown) (no (unknown) (unknown) NEUROLOGICAL: (units ( unknown) date) Alert and oriented unknown) x4. (unknown) (no (unknown) (unknown) Narrative: (units (unk nown) date) unknown) (unknown) (no (unknown) (unknown) New (units (unkno wn) date) unknown) (unknown) (no (unknown) (unknown) No Action (units (unkn own) date) unknown) (unknown) (no (unknown) (unknown) Ordered: (units (unkno wn) date) unknown) (unknown) (no (unknown) (unknown) Orders (units (unkno wn) date) unknown) (unknown) (no (unknown) (unknown) Oxygen Delivery (units (unknown) date) Method 12/30/21 unknown) 18:28 (unknown) (no (unknown) (unknown) Oxygen Delivery (units (unknown) date) Method Room Air unknown) Room Air (unknown) (no (unknown) (unknown) PSYCHIATRIC: No (units (unknown) date) concerning unknown) psychosocial issues. (unknown) (no (unknown) (unknown) Patient (units (unkno wn) date) Disposition: Home unknown) (unknown) (no (unknown) (unknown) Patient History (units (unknown) date) unknown) (unknown) (no (unknown) (unknown) Patient is a (units (u nknown) date) healthy unknown) 31-year-old female who presents with fever body aches and (unknown) (no (unknown) (unknown) Patient: (units (unkno wn) date) Karen Arenas M unknown) MR#: [id number] (unknown) (no (unknown) (unknown) Prescriptions: (units (unknown) date) unknown) (unknown) (no (unknown) (unknown) Previous Rx's (units ( unknown) date) unknown) (unknown) (no (unknown) (unknown) Pulse Oximetry 99 (units (unknown) date) 12/30/21 18:28 unknown) (unknown) (no (unknown) (unknown) Pulse Oximetry 99 (units (unknown) date) 98 unknown) (unknown) (no (unknown) (unknown) Pulse Rate 112 H (units (unknown) date) 12/30/21 18:28 unknown) (unknown) (no (unknown) (unknown) Pulse Rate 112 H (units (unknown) date) 112 H unknown) (unknown) (no (unknown) (unknown) RESPIRATORY: (units (u nknown) date) Breath sounds unknown) equal bilaterally, no wheezes rales or rhonchi. (unknown) (no (unknown) (unknown) RESPIRATORY: (units (u nknown) date) Denies dyspnea, unknown) cough, wheezing, hemoptysis, sputum. (unknown) (no (unknown) (unknown) RSV (PCR) (units (unkn own) date) Negative unknown) (Negative) (unknown) (no (unknown) (unknown) Related Data (units (u nknown) date) unknown) (unknown) (no (unknown) (unknown) Respiratory Rate (units (unknown) date) 19 12/30/21 18:28 unknown) (unknown) (no (unknown) (unknown) Respiratory Rate (units (unknown) date) 19 18 unknown) (unknown) (no (unknown) (unknown) Review of Systems (units (unknown) date) unknown) (unknown) (no (unknown) (unknown) Rx Instructions: (units (unknown) date) unknown) (unknown) (no (unknown) (unknown) SARS-CoV-2 (PCR) (units (unknown) date) Negative unknown) (Negative) (unknown) (no (unknown) (unknown) SKIN: No rash, no (units (unknown) date) erythema, no unknown) pruritus (unknown) (no (unknown) (unknown) SKIN: Warm, dry, (units (unknown) date) no laceration, no unknown) petechiae, no rashes or lesions. (unknown) (no (unknown) (unknown) See Rx (units (unkno wn) date) Instructions unknown) .Route Qty: 1 0RF (unknown) (no (unknown) (unknown) Signed By: (units (unk nown) date) unknown) (unknown) (no (unknown) (unknown) Smoking Status: (units (unknown) date) Never smoker unknown) (unknown) (no (unknown) (unknown) Social History (units (unknown) date) (Reviewed 12/30/21 unknown) @ 21:25 by Ivana Soto DO) (unknown) (no (unknown) (unknown) Source: patient (units (unknown) date) unknown) (unknown) (no (unknown) (unknown) Stage 2 chronic (units (unknown) date) kidney disease unknown) (unknown) (no (unknown) (unknown) Stated Complaint: (units (unknown) date) High heartrate, unknown) dizzy, body tingling (unknown) (no (unknown) (unknown) Substance Use (units ( unknown) date) Type: marijuana unknown) (unknown) (no (unknown) (unknown) Tamiflu take as (units (unknown) date) directed 75 mg unknown) twice a day for 5 days--> SENT TO [facility] (unknown) (no (unknown) (unknown) Temperature 100.6 (units (unknown) date) F H 12/30/21 18:28 unknown) (unknown) (no (unknown) (unknown) Temperature 100.6 (units (unknown) date) F H 99.1 F unknown) (unknown) (no (unknown) (unknown) Time Seen by (units (u nknown) date) Provider: 12/30/21 unknown) 20:52 (unknown) (no (unknown) (unknown) Tylenol 1000 mg (units (unknown) date) every 6 hours if unknown) needed for hyvp-le-pnnmttbm pain (unknown) (no (unknown) (unknown) Vital Signs - 8 (units (unknown) date) hr unknown) (unknown) (no (unknown) (unknown) Vital Signs (units (un known) date) unknown) (unknown) (no (unknown) (unknown) Vital signs: (units (u nknown) date) unknown) (unknown) (no (unknown) (unknown) aerosol inhaler (units (unknown) date) shortness of unknown) breath or wheezing (unknown) (no (unknown) (unknown) albuterol sulfate (units (unknown) date) 2.5 mg /3 mL unknown) (0.083 %) solution for nebulization (unknown) (no (unknown) (unknown) albuterol sulfate (units (unknown) date) 2.5 mg/3 mL 2.5 mg unknown) (3 mL) inhalation Q4-6H PRN 07/22/21 (unknown) (no (unknown) (unknown) albuterol sulfate (units (unknown) date) 90 mcg/actuation 2 unknown) puff inhalation Q6H PRN 07/22/21 (unknown) (no (unknown) (unknown) albuterol sulfate (units (unknown) date) 90 mcg/actuation unknown) HFA aerosol inhaler (unknown) (no (unknown) (unknown) alcohol intake (units (unknown) date) frequency: a few unknown) times a month (unknown) (no (unknown) (unknown) amoxicillin (units (un known) date) Allergy Severe unknown) Hives Verified 12/30/21 18:35 (unknown) (no (unknown) (unknown) banana Allergy (units (unknown) date) Severe Anaphylaxis unknown) Verified 12/30/21 18:35 (unknown) (no (unknown) (unknown) confusion (units (unkn own) date) unknown) (unknown) (no (unknown) (unknown) constipation, (units ( unknown) date) melena. unknown) (unknown) (no (unknown) (unknown) corn Allergy (units (u nknown) date) Severe Anaphylaxis unknown) Verified 12/30/21 18:35 (unknown) (no (unknown) (unknown) distress (units (unkno wn) date) unknown) (unknown) (no (unknown) (unknown) egg Allergy (units (un known) date) Severe Anaphylaxis unknown) Verified 12/30/21 18:35 (unknown) (no (unknown) (unknown) fluids or any (units ( unknown) date) new, worsening or unknown) concerning symptoms (unknown) (no (unknown) (unknown) guarding or (units (un known) date) rebound. unknown) (unknown) (no (unknown) (unknown) has generalized (units (unknown) date) body aches and not unknown) feeling. No significant neck pain or (unknown) (no (unknown) (unknown) headache. (units (unkn own) date) unknown) (unknown) (no (unknown) (unknown) here in the ED (units (unknown) date) she has not taken unknown) anything for fever or pain. Denies cough she (unknown) (no (unknown) (unknown) intact (units (unkno wn) date) unknown) (unknown) (no (unknown) (unknown) membranes (units (unkn own) date) unknown) (unknown) (no (unknown) (unknown) nebulizer and (units ( unknown) date) compressor #1 ea unknown) 07/22/21 (unknown) (no (unknown) (unknown) nut - unspecified (units (unknown) date) Allergy Severe unknown) Anaphylaxis Verified 12/30/21 18:35 (unknown) (no (unknown) (unknown) oseltamivir 75 mg (units (unknown) date) capsule (Tamiflu) unknown) 75 mg PO BID 5 days #10 caps 12/30/21 (unknown) (no (unknown) (unknown) oseltamivir (units (un known) date) [Tamiflu] 75 mg unknown) capsule (unknown) (no (unknown) (unknown) pain (units (unkno wn) date) unknown) (unknown) (no (unknown) (unknown) pain. (units (unkno wn) date) unknown) (unknown) (no (unknown) (unknown) prednisone 20 mg (units (unknown) date) tablet 40 mg PO unknown) DAILY #10 tabs 07/22/21 (unknown) (no (unknown) (unknown) prednisone 20 mg (units (unknown) date) tablet unknown) (unknown) (no (unknown) (unknown) sharp body pains (units (unknown) date) ongoing for 1 day. unknown) She is currently tachycardic and febrile (unknown) (no (unknown) (unknown) wheat Allergy (units ( unknown) date) Severe Anaphylaxis unknown) Verified 12/30/21 18:35 Result panel 56 (unknown) (no (unknown) (unknown) (no value) (units (unk nown) date) unknown) (unknown) (no (unknown) (unknown) #6.7 grams (units (unk nown) date) unknown) (unknown) (no (unknown) (unknown) #75 mL (units (unkno wn) date) unknown) (unknown) (no (unknown) (unknown) <Electronically (units (unknown) date) signed by Ivana unknownRadha Soto D.O.> (unknown) (no (unknown) (unknown) (0.083 %) (units (unkn own) date) solution for unknown) nebulization shortness of breath or wheezing (unknown) (no (unknown) (unknown) (DME) nebulizer (units (unknown) date) and compressor unknown) Device (unknown) (no (unknown) (unknown) *Continue to take (units (unknown) date) medications as unknown) directed (unknown) (no (unknown) (unknown) *Follow up with (units (unknown) date) your primary care unknown) provider in 2-3 days or call [phone] (unknown) (no (unknown) (unknown) *Return to ER if (units (unknown) date) you should have unknown) increased difficulty breathing not tolerating (unknown) (no (unknown) (unknown) *What to do: Stay (units (unknown) date) hydrated fever unknown) control Tylenol or Motrin (unknown) (no (unknown) (unknown) *You have been (units (unknown) date) diagnosed with unknown) influenza a (unknown) (no (unknown) (unknown) [id number] (units (unkno wn) date) unknown) (unknown) (no (unknown) (unknown) 12/30/21 18:36 (units (unknown) date) unknown) (unknown) (no (unknown) (unknown) 12/30/21 (units (unkno wn) date) Range/Units unknown) (unknown) (no (unknown) (unknown) 12/30/21 (units (unkno wn) date) unknown) (unknown) (no (unknown) (unknown) 12/31/21 0511 (units ( unknown) date) unknown) (unknown) (no (unknown) (unknown) 12 point review (units (unknown) date) of systems is unknown) negative except for those stated above and HPI (unknown) (no (unknown) (unknown) 18:36 (units (unkno wn) date) unknown) (unknown) (no (unknown) (unknown) 1RF (units (unkno wn) date) unknown) (unknown) (no (unknown) (unknown) 2 puff inhalation (units (unknown) date) Q6H PRN (Reason: unknown) shortness of breath or wheezing) Qty: 6.7 (unknown) (no (unknown) (unknown) 2.5 mg inhalation (units (unknown) date) Q4-6H PRN (Reason: unknown) shortness of breath or wheezing) Qty: 75 (unknown) (no (unknown) (unknown) 21:40 (units (unkno wn) date) unknown) (unknown) (no (unknown) (unknown) 3RF (units (unkno wn) date) unknown) (unknown) (no (unknown) (unknown) 40 mg PO DAILY (units (unknown) date) Qty: 10 0RF unknown) (unknown) (no (unknown) (unknown) 75 mg PO BID 5 (units (unknown) date) Days Qty: 10 0RF unknown) (unknown) (no (unknown) (unknown) ABDOMEN: Soft, (units (unknown) date) nontender. unknown) Normoactive bowel sounds all 4 quadrants. No (unknown) (no (unknown) (unknown) Activity (units (unkno wn) date) Restrictions/Addit unknown) ional Instructions: (unknown) (no (unknown) (unknown) Age/Sex: 31 / F (units (unknown) date) unknown) (unknown) (no (unknown) (unknown) Allergies (units (unkn own) date) unknown) (unknown) (no (unknown) (unknown) Allergy/AdvReac (units (unknown) date) Type Severity unknown) Reaction Status Date / Time (unknown) (no (unknown) (unknown) As directed (units (un known) date) unknown) (unknown) (no (unknown) (unknown) Asthma (units (unkno wn) date) unknown) (unknown) (no (unknown) (unknown) Blood Pressure (units (unknown) date) 125/75 unknown) (unknown) (no (unknown) (unknown) Blood Pressure (units (unknown) date) 143/76 H 12/30/21 unknown) 18:28 (unknown) (no (unknown) (unknown) CARDIOVASCULAR: (units (unknown) date) Denies chest pain, unknown) palpitations, orthopnea, edema (unknown) (no (unknown) (unknown) CARDIOVASCULAR: (units (unknown) date) Regular rate and unknown) rhythm without murmurs, rubs or gallops. (unknown) (no (unknown) (unknown) Chief Complaint: (units (unknown) date) Upper Respiratory unknown) Symptoms (unknown) (no (unknown) (unknown) Clinical (units (unkno wn) date) Impression: unknown) (unknown) (no (unknown) (unknown) Course (units (unkno wn) date) unknown) (unknown) (no (unknown) (unknown) Covid-19 + FLU (units (unknown) date) A/B + RSV - PCR unknown) Stat (unknown) (no (unknown) (unknown) : 1990 (units (unknown) date) Acct:[id number] unknown) (unknown) (no (unknown) (unknown) Date of Service: (units (unknown) date) 12/30/21 unknown) (unknown) (no (unknown) (unknown) Departure (units (unkn own) date) unknown) (unknown) (no (unknown) (unknown) Discharge Plan (units (unknown) date) unknown) (unknown) (no (unknown) (unknown) ED Orders (units (unkn own) date) unknown) (unknown) (no (unknown) (unknown) ER Physician: (units ( unknown) date) Ivana Soto unknown) D.O. (unknown) (no (unknown) (unknown) EXTREMITIES: (units (u nknown) date) Normal range of unknown) motion, no clubbing or edema. Neurovascularly (unknown) (no (unknown) (unknown) Emergency Report (units (unknown) date) unknown) (unknown) (no (unknown) (unknown) Exam (units (unkno wn) date) unknown) (unknown) (no (unknown) (unknown) GASTROINTESTINAL: (units (unknown) date) Denies nausea, unknown) vomiting, abdominal pain, diarrhea, (unknown) (no (unknown) (unknown) GENERAL: Alert (units (unknown) date) 31-year-old female unknown) appears to not feel well but no acute (unknown) (no (unknown) (unknown) GENERAL: See HPI (units (unknown) date) unknown) (unknown) (no (unknown) (unknown) : Denies (units (unkn own) date) dysuria, unknown) frequency, incontinence, hematuria, urinary retention, flank (unknown) (no (unknown) (unknown) General (units (unkno wn) date) unknown) (unknown) (no (unknown) (unknown) HEENT: Denies (units ( unknown) date) sinus pain, ear unknown) pain, sore throat, difficulty swallowing, neck (unknown) (no (unknown) (unknown) HEENT: Head (units (un known) date) atraumatic,EOMI, unknown) pupils reactive, face symmetric, moist mucous (unknown) (no (unknown) (unknown) HPI - URI/Sore (units (unknown) date) Throat unknown) (unknown) (no (unknown) (unknown) HPI Narrative: (units (unknown) date) unknown) (unknown) (no (unknown) (unknown) History of (units (unk nown) date) Present Illness unknown) (unknown) (no (unknown) (unknown) Influenza A (units (un known) date) (RT-PCR) Flu a unknown) positive H (NEGATIVE) (unknown) (no (unknown) (unknown) Influenza A (units (un known) date) unknown) (unknown) (no (unknown) (unknown) Influenza B (units (un known) date) (RT-PCR) Flu b unknown) negative (NEGATIVE) (unknown) (no (unknown) (unknown) Initial Vital (units ( unknown) date) Signs unknown) (unknown) (no (unknown) (unknown) Initial Vital (units ( unknown) date) Signs: unknown) (unknown) (no (unknown) (unknown) Instructions: DI (units (unknown) date) for Influenza -- unknown) Adult (unknown) (no (unknown) (unknown) [facility] (units (unknown) date) [address] unknown) [place] [address] (unknown) (no (unknown) (unknown) Lab Data (units (unkno wn) date) unknown) (unknown) (no (unknown) (unknown) Lab Results (units (un known) date) unknown) (unknown) (no (unknown) (unknown) Labs: (units (unkno wn) date) unknown) (unknown) (no (unknown) (unknown) MDM - URI/Sore (units (unknown) date) Throat unknown) (unknown) (no (unknown) (unknown) MDM Narrative (units ( unknown) date) unknown) (unknown) (no (unknown) (unknown) MUSCULOSKELETAL: (units (unknown) date) Denies weakness, unknown) joint pain, or bony pain (unknown) (no (unknown) (unknown) Medical History (units (unknown) date) (Reviewed 12/30/21 unknown) @ 21:25 by Ivana Soto DO) (unknown) (no (unknown) (unknown) Medical decision (units (unknown) date) making narrative: unknown) (unknown) (no (unknown) (unknown) Medication (units (unk nown) date) Instructions unknown) Recorded (unknown) (no (unknown) (unknown) Mode of arrival: (units (unknown) date) Family Vehicle unknown) (unknown) (no (unknown) (unknown) Motrin 600 mg (units ( unknown) date) every 6 hours if unknown) needed for [id number] pain (unknown) (no (unknown) (unknown) NEUROLOGIC: (units (un known) date) Denies weakness, unknown) dizziness, headache, numbness, change in speech, (unknown) (no (unknown) (unknown) NEUROLOGICAL: (units ( unknown) date) Alert and oriented unknown) x4. (unknown) (no (unknown) (unknown) Narrative: (units (unk nown) date) unknown) (unknown) (no (unknown) (unknown) New (units (unkno wn) date) unknown) (unknown) (no (unknown) (unknown) No Action (units (unkn own) date) unknown) (unknown) (no (unknown) (unknown) Ordered: (units (unkno wn) date) unknown) (unknown) (no (unknown) (unknown) Orders (units (unkno wn) date) unknown) (unknown) (no (unknown) (unknown) Oxygen Delivery (units (unknown) date) Method 12/30/21 unknown) 18:28 (unknown) (no (unknown) (unknown) Oxygen Delivery (units (unknown) date) Method Room Air unknown) (unknown) (no (unknown) (unknown) PSYCHIATRIC: No (units (unknown) date) concerning unknown) psychosocial issues. (unknown) (no (unknown) (unknown) Patient (units (unkno wn) date) 31-year-old female unknown) overall appears to not feel well but clearly not (unknown) (no (unknown) (unknown) Patient (units (unkno wn) date) Disposition: Home unknown) (unknown) (no (unknown) (unknown) Patient History (units (unknown) date) unknown) (unknown) (no (unknown) (unknown) Patient is a (units (u nknown) date) healthy unknown) 31-year-old female who presents with fever body aches and (unknown) (no (unknown) (unknown) Patient: (units (unkno wn) date) Karen Arenas unknown) MR#: [id number] (unknown) (no (unknown) (unknown) Prescriptions: (units (unknown) date) unknown) (unknown) (no (unknown) (unknown) Previous Rx's (units ( unknown) date) unknown) (unknown) (no (unknown) (unknown) Pulse Oximetry 99 (units (unknown) date) 12/30/21 18:28 unknown) (unknown) (no (unknown) (unknown) Pulse Oximetry 99 (units (unknown) date) unknown) (unknown) (no (unknown) (unknown) Pulse Rate 100 H (units (unknown) date) unknown) (unknown) (no (unknown) (unknown) Pulse Rate 112 H (units (unknown) date) 12/30/21 18:28 unknown) (unknown) (no (unknown) (unknown) RESPIRATORY: (units (u nknown) date) Breath sounds unknown) equal bilaterally, no wheezes rales or rhonchi. (unknown) (no (unknown) (unknown) RESPIRATORY: (units (u nknown) date) Denies dyspnea, unknown) cough, wheezing, hemoptysis, sputum. (unknown) (no (unknown) (unknown) RSV (PCR) (units (unkn own) date) Negative unknown) (Negative) (unknown) (no (unknown) (unknown) Related Data (units (u nknown) date) unknown) (unknown) (no (unknown) (unknown) Respiratory Rate (units (unknown) date) 18 unknown) (unknown) (no (unknown) (unknown) Respiratory Rate (units (unknown) date) 12/30/21 18:28 unknown) (unknown) (no (unknown) (unknown) Review of Systems (units (unknown) date) unknown) (unknown) (no (unknown) (unknown) Rx Instructions: (units (unknown) date) unknown) (unknown) (no (unknown) (unknown) SARS-CoV-2 (PCR) (units (unknown) date) Negative unknown) (Negative) (unknown) (no (unknown) (unknown) SKIN: No rash, no (units (unknown) date) erythema, no unknown) pruritus (unknown) (no (unknown) (unknown) SKIN: Warm, dry, (units (unknown) date) no laceration, no unknown) petechiae, no rashes or lesions. (unknown) (no (unknown) (unknown) See Rx (units (unkno wn) date) Instructions unknown) .Route Qty: 1 0RF (unknown) (no (unknown) (unknown) Signed By: (units (unk nown) date) unknown) (unknown) (no (unknown) (unknown) Smoking Status: (units (unknown) date) Never smoker unknown) (unknown) (no (unknown) (unknown) Social History (units (unknown) date) (Reviewed 12/30/21 unknown) @ 21:25 by Ivana Soto DO) (unknown) (no (unknown) (unknown) Source: patient (units (unknown) date) unknown) (unknown) (no (unknown) (unknown) Stage 2 chronic (units (unknown) date) kidney disease unknown) (unknown) (no (unknown) (unknown) Stated Complaint: (units (unknown) date) High heartrate, unknown) dizzy, body tingling (unknown) (no (unknown) (unknown) Substance Use (units ( unknown) date) Type: marijuana unknown) (unknown) (no (unknown) (unknown) Tamiflu take as (units (unknown) date) directed 75 mg unknown) twice a day for 5 days--> SENT TO [facility] (unknown) (no (unknown) (unknown) Temperature 100.6 (units (unknown) date) F H 12/30/21 18:28 unknown) (unknown) (no (unknown) (unknown) Time Seen by (units (u nknown) date) Provider: 12/30/21 unknown) 20:52 (unknown) (no (unknown) (unknown) Tylenol 1000 mg (units (unknown) date) every 6 hours if unknown) needed for gehy-yi-oweslcna pain (unknown) (no (unknown) (unknown) Visit Report (units (u nknown) date) Forms: Patient unknown) Portal/API (unknown) (no (unknown) (unknown) Vital Signs - 8 (units (unknown) date) hr unknown) (unknown) (no (unknown) (unknown) Vital Signs (units (un known) date) unknown) (unknown) (no (unknown) (unknown) Vital signs: (units (u nknown) date) unknown) (unknown) (no (unknown) (unknown) aerosol inhaler (units (unknown) date) shortness of unknown) breath or wheezing (unknown) (no (unknown) (unknown) albuterol sulfate (units (unknown) date) 2.5 mg /3 mL unknown) (0.083 %) solution for nebulization (unknown) (no (unknown) (unknown) albuterol sulfate (units (unknown) date) 2.5 mg/3 mL 2.5 mg unknown) (3 mL) inhalation Q4-6H PRN 07/22/21 (unknown) (no (unknown) (unknown) albuterol sulfate (units (unknown) date) 90 mcg/actuation 2 unknown) puff inhalation Q6H PRN 07/22/21 (unknown) (no (unknown) (unknown) albuterol sulfate (units (unknown) date) 90 mcg/actuation unknown) HFA aerosol inhaler (unknown) (no (unknown) (unknown) alcohol intake (units (unknown) date) frequency: a few unknown) times a month (unknown) (no (unknown) (unknown) amoxicillin (units (un known) date) Allergy Severe unknown) Hives Verified 12/30/21 18:35 (unknown) (no (unknown) (unknown) are consistent (units (unknown) date) with influenza is unknown) and she is positive for influenza A. She is (unknown) (no (unknown) (unknown) banana Allergy (units (unknown) date) Severe Anaphylaxis unknown) Verified 12/30/21 18:35 (unknown) (no (unknown) (unknown) confusion (units (unkn own) date) unknown) (unknown) (no (unknown) (unknown) constipation, (units ( unknown) date) melena. unknown) (unknown) (no (unknown) (unknown) corn Allergy (units (u nknown) date) Severe Anaphylaxis unknown) Verified 12/30/21 18:35 (unknown) (no (unknown) (unknown) distress (units (unkno wn) date) unknown) (unknown) (no (unknown) (unknown) egg Allergy (units (un known) date) Severe Anaphylaxis unknown) Verified 12/30/21 18:35 (unknown) (no (unknown) (unknown) fluids or any (units ( unknown) date) new, worsening or unknown) concerning symptoms (unknown) (no (unknown) (unknown) guarding or (units (un known) date) rebound. unknown) (unknown) (no (unknown) (unknown) has generalized (units (unknown) date) body aches and not unknown) feeling. No significant neck pain or (unknown) (no (unknown) (unknown) headache. (units (unkn own) date) unknown) (unknown) (no (unknown) (unknown) here in the ED (units (unknown) date) she has not taken unknown) anything for fever or pain. Denies cough she (unknown) (no (unknown) (unknown) intact (units (unkno wn) date) unknown) (unknown) (no (unknown) (unknown) membranes (units (unkn own) date) unknown) (unknown) (no (unknown) (unknown) nebulizer and (units ( unknown) date) compressor #1 ea unknown) 07/22/21 (unknown) (no (unknown) (unknown) nut - unspecified (units (unknown) date) Allergy Severe unknown) Anaphylaxis Verified 12/30/21 18:35 (unknown) (no (unknown) (unknown) oseltamivir 75 mg (units (unknown) date) capsule (Tamiflu) unknown) 75 mg PO BID 5 days #10 caps 12/30/21 (unknown) (no (unknown) (unknown) oseltamivir (units (un known) date) [Tamiflu] 75 mg unknown) capsule (unknown) (no (unknown) (unknown) pain (units (unkno wn) date) unknown) (unknown) (no (unknown) (unknown) pain. (units (unkno wn) date) unknown) (unknown) (no (unknown) (unknown) prednisone 20 mg (units (unknown) date) tablet 40 mg PO unknown) DAILY #10 tabs 07/22/21 (unknown) (no (unknown) (unknown) prednisone 20 mg (units (unknown) date) tablet unknown) (unknown) (no (unknown) (unknown) sharp body pains (units (unknown) date) ongoing for 1 day. unknown) She is currently tachycardic and febrile (unknown) (no (unknown) (unknown) toxic. Vitals are (units (unknown) date) stable. No sign of unknown) meningitis or other infection. Symptoms (unknown) (no (unknown) (unknown) wheat Allergy (units ( unknown) date) Severe Anaphylaxis unknown) Verified 12/30/21 18:35 (unknown) (no (unknown) (unknown) within range to (units (unknown) date) benefit from unknown) Tamiflu Social History date description facility 2021-12-30 00:00 Never smoked tobacco ([facility] Vital Signs date measurement value units 2021-12-30 00:00 BMI 27.4 kg/m2 2021-12-30 00:00 BP_diastolic 75 mmHg 2021-12-30 00:00 BP_systolic 125 mmHg 2021-12-30 00:00 heart_rate 100 /min 2021-12-30 00:00 height_metric 165.1 cm 2021-12-30 00:00 height_standard 65 in 2021-12-30 00:00 o2_saturation 99 % 2021-12-30 00:00 respiration_rate 18 /min 2021-12-30 00:00 temperature_metric 37.28 C 2021-12-30 00:00 temperature_standard 99.1 F 2021-12-30 00:00 weight_metric 74.84 kg 2021-12-30 00:00 weight_standard 164.99 lb
[2022-02-05 17:37] LABS: BASOPHILS % (AUTO) 0.3 %; EOSINOPHILS # (AUTO) 0.1 10^3/uL (0.0-0.7); EOSINOPHILS % (AUTO) 0.8 %; HCT - HEMATOCRIT 42.1 % (37.0-47.0); HGB - HEMOGLOBIN 14.2 g/dL (12.0-16.0); LYMPHOCYTES # (AUTO) 2.4 10^3/uL (1.5-3.5); LYMPHOCYTES % (AUTO) 23.6 %; MEAN CORPUSCULAR HEMOGLOBIN 29.2 pg (27.0-31.0); MEAN CORPUSCULAR HGB CONC 33.7 g/dL (32.0-36.0); MEAN CORPUSCULAR VOLUME 86.6 fL (81.0-99.0); MEAN PLATELET VOLUME 9.4 fL (7.9-10.8); MONOCYTES # (AUTO) 0.6 10^3/uL (0.0-1.0); MONOCYTES % (AUTO) 5.9 %; NEUTROPHILS # (AUTO) 6.9 10^3/uL (1.5-6.6); NEUTROPHILS % (AUTO) 69.2 %; PLT - PLATELET COUNT 370 10^3/uL (130-450); RED BLOOD COUNT 4.86 10^6/uL (4.20-5.40); RED CELL DISTRIBUTION WIDTH 12.5 % (12.0-15.0); WHITE BLOOD COUNT 9.9 x10^3/uL (4.8-10.8)
[2022-02-05 17:49] LABS: ALBUMIN 4.7 g/dL (3.2-5.5); ALBUMIN/GLOBULIN RATIO 1.2 (1.0-2.2); BILIRUBIN,TOTAL 0.5 mg/dL (0.2-1.0); CALCIUM 10.4 mg/dL (8.5-10.3); CREATININE 0.9 mg/dL (0.4-1.0); POTASSIUM 3.9 mmol/L (3.5-5.0); TOTAL PROTEIN 8.7 g/dL (6.7-8.2)
[2022-02-05 17:59] LABS: HCG,QUALITATIVE BLOOD NEGATIVE
[2022-02-05] MEDS ORDERED: ONDANSETRON ODT 4 MG TABLET TL STA (19:34)
[2022-02-05] MEDS ORDERED: LORazepam 1 MG TABLET PO STA (19:34)
--- NOTE | 2022-02-05 19:40 | ED Physician Documentation ---
History of Present Illness - Stated complaint Stated Complaint: SHAKING/NAUSEA/DIZZY - Chief complaint Chief Complaint: General - History obtained from History obtained from: Patient - History of Present Illness Timing: Today Pain level max: 0 Pain level now: 0 - Additonal information Additional information: 31-year-old female had an EM sculpt procedure today at approximately 10:30 AM. She states that about an hour later she started to feel shaky and jittery. Nothing seems to make it better or worse. Has had mild nausea but no vomiting. No abdominal pain. No chest pain. No shortness of breath. Has not had similar symptoms previously. Denies any possibility of . No fevers. No chills. Review of Systems Constitutional: denies: Fever, Chills Throat: denies: Sore throat Cardiac: denies: Chest pain / pressure, Palpitations Respiratory: denies: Dyspnea, Cough GI: denies: Abdominal Pain, Nausea, Vomiting, Diarrhea : denies: Dysuria, Now EGA Skin: denies: Rash Musculoskeletal: denies: Neck pain, Back pain Neurologic: denies: Headache PD PAST MEDICAL HISTORY - Past Medical History Past Medical History: Yes Psych: Depression - Allergies Allergies/Adverse Reactions: Allergies Allergy/AdvReac Type Severity Reaction Status Date / Time amoxicillin Allergy Hives Verified 02/05/22 15:54 - Living Situation Living Arrangement: reports: At home - Social History Does the pt have substance abuse?: No - Family History Family history: reports: Non contributory PD ED PE NORMAL - Vitals Vital signs reviewed: Yes - General General: Alert and oriented X 3, No acute distress, Well developed/nourished - HEENT HEENT: PERRL, Moist mucous membranes - Neck Neck: Supple, no meningeal sign - Cardiac Cardiac: RRR, No murmur, Strong equal pulses - Respiratory Respiratory: No respiratory distress, Clear bilaterally - Abdomen Abdomen: Soft, Non tender, Non distended - Back Back: No CVA TTP, No spinal TTP - Derm Derm: Warm and dry - Extremities Extremities: No edema, No calf tenderness / cord, Other (Mild tremor to the bilateral upper extremities when she lifts her arms.) - Neuro Neuro: Alert and oriented X 3, block mason 2-12 intact, No motor deficit, No sensory deficit, Normal speech - Psych Psych: Normal mood, Normal affect Results - Vitals Vitals: Vital Signs - 24 hr 02/05/22 02/05/22 15:50 19:55 Temperature 36.1 C L 37.0 C Heart Rate 98 94 Respiratory 16 18 Rate Blood Pressure 156/96 H 127/68 O2 Saturation 100 99 Oxygen O2 Source Room air - Labs Labs: Laboratory Tests 02/05/22 02/05/22 02/05/22 17:30 17:30 17:30 WBC 9.9 RBC 4.86 Hgb 14.2 Hct 42.1 MCV 86.6 MCH 29.2 MCHC 33.7 RDW 12.5 Plt Count 370 MPV 9.4 Neut # (Auto) 6.9 H Lymph # (Auto) 2.4 Whitley # (Auto) 0.6 Eos # (Auto) 0.1 Baso # (Auto) 0.0 Absolute Nucleated RBC 0.00 Nucleated RBC % 0.0 Sodium 135 Potassium 3.9 Chloride 99 L Carbon Dioxide 26 Anion Gap 10.0 BUN 14 Creatinine 0.9 Estimated GFR (MDRD) 73 L Glucose 88 Calcium 10.4 H Total Bilirubin 0.5 AST 12 ALT 16 Alkaline Phosphatase 40 L Total Creatine Kinase 70 Total Protein 8.7 H Albumin 4.7 Globulin 4.0 Albumin/Globulin Ratio 1.2 Lipase 32 Serum HCG, Qual NEGATIVE PD Medical Decision Making - ED course Complexity details: considered differential, d/w patient ED course: No significant laboratory abnormalities. Unclear etiology of her symptoms. Seem to have started after the EM sculpt procedure, given Zofran and Ativan here. The tremors did decrease while waiting in the waiting room. Suspect that this should resolve over the next 24 hours. She will follow-up with her doctor for further care. No headache. No trauma. No focal neurological deficits. GCS 15. NIH stroke scale of 0. Normal gait. Normal cerebellar tests. Patient counseled regarding signs and symptoms for which I believe and urgent re- evaluation would be necessary. Patient with good understanding of and agreement to plan and is comfortable going home at this time This document was made in part using voice recognition software. While efforts are made to proofread this document, sound alike and grammatical errors may occur. Departure - Departure Disposition: 01 Home, Self Care Clinical Impression: Shakiness Condition: Good Instructions: ED Spasm Muscle Follow-Up: LACEY RYDER PA-C [Primary Care Provider] - Within 1 week Comments: Your blood work does not show any significant abnormalities today. The cause of the shaking is unclear but could be related to the emsculpt. Please follow-up with your doctor for further care and return if you worsen. Discharge Date/Time: 02/05/22 19:55
[2022-02-05 19:56] VITALS: BP 127/68
== END 2022-02-05 19:55 | disposition home or self-care (01) ==
LOC: ED 15:44
DX: R25.1 Tremor, unspecified (principal)
CPT/HCPCS: 36415; 80053; 82550; 83690; 84703; 85025; 99283; J8499; Q0162

== ENCOUNTER 2022-08-17 07:59 | Outpatient (CLI) | payer OTHER ==
[~2022-08-17 07:59] MED LIST: GADOBUTROL 10 MMOL/10 ML VIAL ONE
[2022-08-17] MEDS ORDERED: GADOBUTROL 10 MMOL/10 ML VIAL IVP ONE (08:56)
--- NOTE | 2022-08-17 16:04 | MRI Report ---
PROCEDURE: BRAIN W/WO INDICATIONS: UNSP SYMPTOMS AND SIGNS W COGNITIVE FUNCTIONS CONTRAST: GADAVIST 8.0 ML TECHNIQUE: Noncontrast axial T1 spin echo, axial T2 fast spin echo, sagittal and axial FLAIR, coronal T2 fast sp in echo, axial gradient echo, axial diffusion and ADC through the brain. After the administration of contrast, axial and coronal T1 spin echo with fat saturation through the brain. COMPARISON: MRI brain 03/05/2022 FINDINGS: Image quality: Excellent. CSF spaces: Basal cisterns are patent. No extra-axial fluid collections. Ventricles are normal in size and shape. Brain: Previously identified punctate T2 hyperintensities predominantly in the peripheral left front al lobe are unchanged. No new lesions are identified. No midline shift. No intracranial bleeds or ma sses. No abnormal intracranial enhancement. There is cerebral volume loss for age. There is perive ntricular white matter chronic small vessel ischemic change. The brainstem appears normal. Diffusio n-weighted images demonstrate no acute ischemic insults. No chronic ischemic insults. Normal intrav ascular flow voids are present. Skull and face: Calvarial marrow is normal in signal. Orbits appear normal. Sinuses: Sinuses demonstrate minimal mucosal thickening.. IMPRESSION: Stable appearance of bifrontal punctate T2 hyperintense foci. As previously identified, these are ove rall nonspecific. These could represent foci of prior infection/inflammation/ischemia, migraine seque la, vasculitis or demyelinating disease under appropriate clinical circumstances. Reviewed by: Trish James MD on 08/17/2022 4:02 PM PDT Approved by: Trish James MD on 08/17/2022 4:02 PM PDT Station ID: [id number]
== END 2022-08-17 08:00 | disposition home or self-care (01) ==
LOC: DI 07:59
PROVIDERS: ATTEND Student in an Organized Health Care Education/Training Program
DX: R93.0 Abnormal findings on diagnostic imaging of skull and head, not elsewhere classified (principal); R41.9 Unspecified symptoms and signs involving cognitive functions and awareness
CPT/HCPCS: 70553; A9585

== ENCOUNTER 2023-04-22 13:15 | Outpatient (CLI) | payer OTHER ==
[2023-04-23 09:53] LABS: BACTERIAL VAGINOSIS DNA POSITIVE (NEGATIVE); CANDIDA GLABRATA DNA NEGATIVE (NEGATIVE); CANDIDA GROUP DNA NEGATIVE (NEGATIVE); CANDIDA KRUSEI DNA NEGATIVE (NEGATIVE); TRICHOMONAS VAGINALIS DNA NEGATIVE (NEGATIVE)
[2023-04-23 12:12] LABS: CHLAMYDIA TRACHOMATIS DNA NEGATIVE (NEGATIVE); NEISSERIA GONORRHOEAE DNA NEGATIVE (NEGATIVE)
== END 2023-04-22 13:30 | disposition home or self-care (01) ==
LOC: LAB.N 13:15
PROVIDERS: ATTEND Physician Assistant
DX: N89.8 Other specified noninflammatory disorders of vagina (principal)
CPT/HCPCS: 81514; 87491; 87591; 87661

== ENCOUNTER 2023-10-08 06:58 | Outpatient (CLI) | payer OTHER ==
--- NOTE | 2023-10-08 10:37 | Ultrasound Report ---
PROCEDURE: Abdomen Limited INDICATIONS: ELEVATED SERUM ENZYMES TECHNIQUE: Real-time focused scanning was performed of the abdomen, with image documentation. COMPARISONS: None. FINDINGS: Liver: Liver is at the upper limits of normal in size and diffusely hyperechoic in echotexture. No dominant mass. Gallbladder: No gallstones, sludge, wall thickening or pericholecystic edema. Biliary ducts: Intrahepatic bile ducts are non-dilated. Extrahepatic bile duct caliber measures 4.9 mm. Normal is 6-7 mm or less in diameter, or 10 mm or less post-cholecystectomy. Pancreas: The proximal pancreas is normal. The tail is not well seen due to bowel gas. Right kidney: Normal in size and echotexture. Right kidney measures 10.7 cm long. No hydronephrosis or nephrolithiasis. No solid masses. No complex renal cystic lesions which require follow-up. IVC: Intrahepatic inferior vena cava is patent. Miscellaneous: No free abdominal fluid. IMPRESSION: Diffusely hyperechoic hepatic parenchyma suggesting steatosis, less likely other intrinsic liver dise ase. Normal gallbladder and biliary tree. Reviewed by: Sherrill Echols MD on 10/08/2023 10:36 AM PDT Approved by: Sherrill Echols MD on 10/08/2023 10:36 AM PDT Station ID: [id number]
== END 2023-10-08 06:59 | disposition home or self-care (01) ==
LOC: DI 06:58
PROVIDERS: ATTEND Nurse Practitioner Family
DX: R79.9 Abnormal finding of blood chemistry, unspecified (principal); R74.8 Abnormal levels of other serum enzymes